=== PATIENT | female | born 1980 | race Caucasian/White ===

== ENCOUNTER 2024-11-05 15:36 | Outpatient (CLI) | payer BC, SELFPAY ==
[2024-11-05 15:58] LABS: Basophils Absolute Auto 0.1 K/mm3 (0.0-0.1); Basophils Percent Auto 0.6 % (0.2-1.2); Eosinophils Absolute Auto 0.3 K/mm3 (0-0.3); Eosinophils Percent Auto 4.3 % (0-4.4); Hematocrit 43.4 % (37.0-47.0); Hemoglobin 14.4 g/dL (12.0-15.0); Immature Granulocyte Absolute 0.02 K/mm3 (0.00-0.031); Immature Granulocyte Percent A 0.3 % (0-0.5); Lymphocytes Absolute Auto 2.02 K/mm3 (0.9-3.2); Lymphocytes Percent Auto 25.5 % (18.3-44.2); Mean Corpuscular HGB Conc 33.2 g/dl (32-36); Mean Corpuscular Volume 93.5 fl (80-100); Mean Platelet Volume 10.9 fl (7.4-10.4); Monocytes Absolute Auto 0.4 K/mm3 (0.1-0.6); Monocytes Percent Auto 4.9 % (2.6-8.5); Neutrophils Absolute Auto 5.1 K/mm3 (1.3-6.7); Neutrophils Percent Auto 64.4 % (45.5-73.1); Platelet Count Result 227 k/mm3 (150-375); Red Blood Count 4.64 M/mm3 (4.2-5.4); Red Cell Distribution Width 12.5 % (11.5-14.5); White Blood Count 7.9 K/mm3 (4.5-10.0)
--- OUTSIDE RECORDS SUMMARY | 2024-11-05 16:44 | XMS_ITS | Continuity of Care Document ---
Author Organization [facility] Address [address] [place] [address] Phone Care Team Providers Care Research Nutritionist Name Role Phone Mann Knott PT Unavailable Unavailable Allergies, Adverse Reactions, Alerts Substance Reaction Status Criticality No Known Allergies Active No Inform ation Medications Medication Instructions Dosage Effective Dates (start - stop) Status Comments hydrocodone 5 mg-acetaminophen 325 mg tablet take 1 tablet by oral route every 6 hours as needed for pain s/p surgery M19.071 - Active Ecotrin 325 mg tablet,enteric coated take 1 po BID with food for 30 days PO. - Active hydroxyzine HCl 50 mg tablet take 1 tablet by mouth every 6 hours PRN for agitation, nausea and vomiting. - Active Ecotrin 325 mg tablet,enteric coated take 1 po BID with food for 30 days PO - Active hydroxyzine HCl 50 mg tablet take 1 tablet by mouth every 6 hours PRN for agitation, nausea and vomiting - Active prednisolone acetate 1 % eye drops,suspension take 1 drop once into both eyes as needed - Active Procedures Procedure Date Postop followup visit Therapeutic activities (one on one) Neuromuscular re-edu Physical Tx exercise Vasopneumatic device therapy PT EVAL LOW COMPLEX 20 MIN Therapeutic activities (one on one) Neuromuscular re-edu Physical Tx exercise Vasopneumatic device therapy Postop followup visit Afo ankle gauntlet Postop followup visit Pneuma/vac walk boot pre ots Postop followup visit PA Arthscpy Ankle Debrid Extensive Sep-2 PA Muscle-skin flap, leg PA-Followup repair of ankleligament Arthscpy ankle debrid extensive 023 Arthroscopy, ankle, excise defect Muscle-skin flap, leg Followup repair of ankle ligament Surgery Prepay Office/outpatient visit,new, low 2022 Measure blood oxygen level, single Sep-0 Office/outpatient visit,est, mod 2022 Office/outpatient visit,new, mod 2022 X-ray exam of ankle, complete 3 Advance Directives Directive Yes / No Effective Date File Name No Information Encounters Encounter Description Practice Location Reason(s) For Visit Diagnoses Date Provider Providers Copied on Encounter [facility], [facility] [address] [place], [place], [facility] [place], [place] tel:[phone] No Information 4 Nikos Darnell. [address] [facility] [address], [place], [place], [id number] , [place]. [phone] [facility], [facility], [address], [place] tel:[phone] [place] Encounter for other orthopedic aftercare 3 Bib Shultz. [address], [place], [place], [id number] , [place]. tel:[phone] Referring Provider: Duy [address], [place], [address] . tel:[phone] [facility], [facility], [address], [place] tel:[phone] ON [place] Pain in right ankle and joints of right footGeneraliz ed edemaMuscle weakness (generalized) Sprain of other ligament of right ankle, subsequent encounter 3 Nikos Pinedachary. [address], [place], [place], [id number] , [place]. tel:[phone] Referring Provider: Carrington Camacho, [address], [place], [address] . tel:[phone] [facility], [facility] [place], [facility] [place], [place] tel:[phone] ON [facility] [place] Pain in right ankle and joints of right footGeneraliz ed edemaMuscle weakness (generalized) Sprain of other ligament of right ankle, subsequent encounter 3 Nikos Darnell. [address], [place], [place], [id number] , [place]. tel:[phone] Referring Provider: Duy [address], [place], [address] . tel:[phone] [facility] [place] [address] [place], [place], [facility] [place], [place] tel:[phone] [place] Sprain of other ligament of right ankle, subsequent encounterSpra in of other ligament of right ankle, subsequent encounterEnco unter for other orthopedic aftercare 3 Bib Shultz. [address], [place], [place], [id number] , [place]. tel:[phone] Referring Provider: Duy [address], [place], [address] . tel:[phone] [facility] [place] [address] [place], [place], [facility] [place], [place] tel:[phone] [place] No Information 3 Bib Shultz. [address], [place], [place], [id number] , [place]. tel:[phone] Referring Provider: Carrington Camacho, Duy [address] [facility] [address], [place], [address] . tel:[phone] [facility], [facility] [place], [facility] [place], [place] tel:[phone] [place] Encounter for other orthopedic aftercare 3 Bib Shultz. [address], [place], [place], [id number] , [place]. tel:[phone] Referring Provider: Carrington Camacho, Duy [address] [facility] [address], [place], [address] . tel:[phone] [facility], [facility] [place], [facility] [place], [place] tel:[phone] [place] No Information 3 Bib Shultz. [address] [facility] [address], [place], [place], [id number] , [place]. tel:[phone] Referring Provider: Carrington Camacho, Duy [address] [facility] [address], [place], [address] . tel:[phone] [facility], [facility] [place], [facility] [place], [place] tel:[phone] [place] Encounter for other orthopedic aftercare 3 Bib Shultz. [address] [facility] [address], [place], [place], [address] , [place]. tel:[phone] Referring Provider: Car[place] Camacho, Duy [address] [facility] [address], [place], [address] . tel:[phone] [facility], [facility] [place], [facility] [place], tel:[phone] [facility] No Information 3 Abraham Saab. [address] , [address], [place], [place], [id number] , [place]. tel:[phone] Referring Provider: Carrington Camacho, Duy [address], [place], [address] . tel:[phone] [facility], [facility] [place], [facility] [place], tel:[phone] [facility] No Information Mar-2 3 Bib Shultz. [address], [place], [place], [id number] , [place]. tel:[phone] Referring Provider: Carrington Camacho, Duy [address], [place], [address] . tel:[phone] [place] [address] [address] [place], [place], [facility] [place], tel:[phone] [facility] No Information Mar-2 3 Bib Shultz. [address], [address], [place], [place], [id number] , [place]. tel:[phone] Referring Provider: Carrington Camacho, Duy [address], [place], [address] . tel:[phone] Office/outpa tient visit,[facility], [facility] [place], [facility] [place], [place] tel:[phone] [facility] Preoperative examinationSp rain of right ankle, unspecified ligament, initial encounterPreo p cardiovascula r examObesity, morbid, BMI 40.0-49.9No contraindicat ion to anticoagulati on therapySeason al allergies Sep-0 3 Ken Light. [address], [address], [place], [place], [id number] , [place]. tel:[phone] Referring Provider: Carrington Camacho, Duy [address], [place], [address] . tel:[phone] Office/outpa tient visit,[facility], [facility], [facility] [place], [facility] [place], [place] tel:[phone] [place] Sprain of other ligament of right ankle, subs encntrOther specified joint disorders, right ankle and footOther instability, right ankle 3 Bib Shultz. [address], [place], [place], [id number] , [place]. tel:[phone] Referring Provider: Duy [address], [place], [address] . tel:[phone] Office/outpa tient visit,[facility], [address], [place], [address], [place] tel:[phone] [place] Other instability, right ankleOther specified joint disorders, right ankle and footSprain of other ligament of right ankle, initial encounter 3 Bib Shultz. [address], [place], [place], [id number] , [place]. tel:[phone] Referring Provider: Car[place] Camacho, Duy [address], [place], [address] . tel:[phone] Family History Family Member Type Diagnosis Age At Onset No Information Payers Payer name Insurance type Covered constitution party ID Jenny flynn(jose Aguilera [facility] [id number] Social History Type Description Quantity Date Captured Comments Sex Female Smoking Status No Information Chief Complaint And Reason For Visit No Information Reason For Referral Reason For Referral No Information Plan Of Treatment Date Type Action Status Future Order: Radiology Order An kle MRI joint, w/o contrast, Right (99929), Body Site: Ankle/Foot, Sent on: Sent History Of Present Illness Encounter Date Complaint History Of Prese nt Illness Preoperative medical risk stratification The patient, Chhaya Currie, is a 43-year-old female who presents for preoperative medical risk stratification at the request of Dr.Jeffrey Bib HARDIN, prior to right ankle arthroscopy. This patient presents with a 1 year history of pain involving the right ankle. She denies any specific injury but has had a prior history of some ankle sprains. She now reports constant gdzd-yc-aojeuknw pain and aching. She has been in a ankle brace for the past month. She reports undergoing more recent MRI imaging within the past month. Patient now presents for right ankle surgery recommended by her surgeon. This patient denies any chronic health conditions requiring pharmacologic treatment other than allergies primarily affecting her eyes requiring occasional prednisolone eye drops. This patient denies any adverse events associated with prior anesthetic. Functional Status Date Functional Assessmen t No Information Instructions Date Instruction Additional Infor mation No Information Assessments Type Assessment Date No Information Patient Care Teams Name Effective Dates (start - stop) Status Members No Information
--- OUTSIDE RECORDS SUMMARY | 2024-11-05 16:44 | XMS_ITS | Clinical Summary ---
Author Organization [facility] Address [address] [place] [address] Care Team Providers Care Unit Aide Name Role Phone Unavailable Primary Care Provider Unavailabl e Social History Tobacco Use Types Packs/Day Years Used Date Smoking Tobacco: Never Assessed Comments Unknown Sex and Gender Information Value Date Recorded Sex Assigned at Not on file Legal Sex Female 4:31 PM CDT Gender Identity Not on file Sexual Orientation Not on file Plan of Treatment Health Maintenance Due Date Last Done Comments Cervical Cancer Screening Pa p Smear (Age 30 to 64) Every 3 Years 1979 Colorectal Cancer Screening Colonoscopy (10 Years) 1979 Annual Physical 1982 Hepatitis C 1997 DTaP, Tdap and Td Vaccines ( 1 - Tdap) 1998 Hepatitis B Vaccines (1 of 3 - 19+ 3-dose series) 1998 Cervical Cancer Screening Pa p with HPV Testing (Age 30 to 64) Every 5 Years 2009 Cervical Cancer Screening with HPV 2009 Mammogram Screening 2019 COVID-19 Vaccine (2023-2 5 season) 2024 HPV Vaccines Aged Out No longer eligi ble based on patient's age to complete this topic Meningococcal B Vaccine Aged Out No l onger eligible based on patient's age to complete this topic Meningococcal Vaccine Aged Out No tim andrew eligible based on patient's age to complete this topic Pneumococcal Vaccine: Pediat rics (0 to 5 Years) and At-Risk Patients (6 to 49 Years) Aged Out No longer eligible b ased on patient's age to complete this topic RSV Immunizations Under 20 Months Aged Out No longer eligible based on patient's age to complete this topic
== END 2024-11-05 15:37 | disposition home or self-care (01) ==
LOC: ANHLAB 15:40
PROVIDERS: Visit Provider Nurse Practitioner Obstetrics & Gynecology
DX: N93.9 Abnormal uterine and vaginal bleeding, unspecified (principal)
CPT/HCPCS: 36415; 84146; 84443; 85025

== ENCOUNTER 2025-01-03 09:39 | Outpatient (CLI) | payer BC, SELFPAY ==
--- NOTE | ~2025-01-03 | US_ITS ---
EXAMINATION: US pelvic complete w TV INDICATION: Abnormal uterine bleeding Comparison:No prior studies for comparison. TECHNIQUE: Multiple transabdominal and endovaginal sonographic images of the pelvis performed. FINDINGS: The uterus measures 9.4 x 4.6 x 4.9 cm. There are nabothian cysts. The endometrial complex measures 7 mm. The right ovary measures 3.8 x 3 x 2.3 cm and the left ovary measures 3.2 x 2.8 x 1.8 cm. There are small follicles in each ovary. Normal doppler signal in both ovaries. There is trace free fluid in the pelvis and cervix. There are no abnormal masses seen on either side . IMPRESSION: 1. Unremarkable pelvic ultrasound. Reviewed, dictated and finalized at location B.
--- OUTSIDE RECORDS SUMMARY | 2025-01-03 09:44 | XMS_ITS | Continuity of Care Document ---
Author Organization [facility] Address [address] [place] [address] Phone Care Team Providers Care Quality Analyst Name Role Phone Mann Knott PT Unavailable Unavailable Allergies, Adverse Reactions, Alerts Substance Reaction Status Criticality No Known Allergies Active No Inform ation Medications Medication Instructions Dosage Effective Dates (start - stop) Status Comments hydrocodone 5 mg-acetaminophen 325 mg tablet take 1 tablet by oral route every 6 hours as needed for pain s/p surgery M19.071 - Active hydroxyzine HCl 50 mg tablet take 1 tablet by mouth every 6 hours PRN for agitation, nausea and vomiting. - Active Ecotrin 325 mg tablet,enteric coated take 1 po BID with food for 30 days PO. - Active hydroxyzine HCl 50 mg tablet take 1 tablet by mouth every 6 hours PRN for agitation, nausea and vomiting - Active Ecotrin 325 mg tablet,enteric coated take 1 po BID with food for 30 days PO - Active prednisolone acetate 1 % eye [...] Date Provider Providers Copied on Encounter [facility], [facility] [address] [place], [place], [facility], [place] tel:[phone] No Information 4 Nikos Darnell. [address] [facility] [address], [place], [place], [id number] , [place]. [phone] [facility], [facility] [place], [address], [place] tel:[phone] [place] Encounter for other orthopedic aftercare 3 Bib Shultz. [address], [place], [place], [id number] , [place]. tel:[phone] Referring Provider: Duy [address], [place], [address] . tel:[phone] [facility] [place], [facility] [place], [address], [place] tel:[phone] ON Therapy [place] Pain in right ankle and joints of right footGeneraliz ed edemaMuscle weakness (generalized) Sprain of other ligament of right ankle, subsequent encounter 3 Nikos Pinedachary. [address], [place], [place], [id number] , [place]. tel:[phone] Referring Provider: Car[place] Camacho, [address], [place], [address] . tel:[phone] [facility] [place], [facility] [place], [facility], [place] tel:[phone] ON Therapy [place] Pain in right ankle and joints of right footGeneraliz ed edemaMuscle weakness (generalized) Sprain of other ligament of right ankle, subsequent encounter 3 Nikos Darnell. [address], [place], [place], [id number] , [place]. tel:[phone] Referring Provider: Duy [address], [place], [address] . tel:[phone] [facility] [place] [address] [address] [place], [place], [facility], [place] tel:[phone] [place] Sprain of other ligament of right ankle, subsequent encounterSpra in of other ligament of right ankle, subsequent encounterEnco unter for other orthopedic aftercare 3 Bib Shultz. [address], [place], [place], [id number] , [place]. tel:[phone] Referring Provider: Duy [address], [place], [address] . tel:[phone] [facility] [place] [address] [address] [place], [place], [facility], [place] tel:[phone] [place] No Information 3 Bib Shultz. [address], [place], [place], [id number] , [place]. tel:[phone] Referring Provider: Carrington Camacho, Duy [address] Dr [facility] [address], [place], [address] . tel:[phone] [facility], [facility] [place], [facility], [place] tel:[phone] [place] Encounter for other orthopedic aftercare 3 Bib Shultz. [address], [place], [place], [id number] , [place]. tel:[phone] Referring Provider: Carrington Camacho, Duy [address] [facility] [address], [place], [address] . tel:[phone] [facility], [facility] [place], [facility], [place] tel:[phone] [place] No Information 3 Bib Shultz. [address] [facility] [address], [place], [place], [address] , [place]. tel:[phone] Referring Provider: Carrington Camacho, Duy [address] [facility] [address], [place], [address] . tel:[phone] [facility], [facility] [place], [facility], [place] tel:[phone] ON [place] Encounter for other orthopedic aftercare 3 Bib Shultz. [address] [facility] [address], [place], [place], [id number] , [place]. tel:[phone] Referring Provider: Carrington Camacho, Duy [address] [facility] [address], [place], [address] . tel:[phone] [facility], [facility] [place], [facility], tel:[phone] [facility] No Information 3 Abraham Saab. [address] , [address], [place], [place], [id number] , [place]. tel:[phone] Referring Provider: Carrington Camacho, Duy [address], [place], [address] . tel:[phone] [facility], [facility] [place], [facility], tel:[phone] [facility] No Information Mar-2 3 Bib Shultz. [address], [place], [place], [id number] , [place]. tel:[phone] Referring Provider: Carrington Camacho, [address]uy [address], [place], [address] . tel:[phone] [place] [address] [address] [place], [place], [facility], tel:[phone] [facility] No Information Mar-2 3 Bib Shultz. [address], [place], [place], [address] , [place]. tel:[phone] Referring Provider: Car[place] Camacho, [address]uy [address], [place], [address] . tel:[phone] Office/outpa tient visit,[facility], [facility] [place], [facility], [place] tel:[phone] [facility] Preoperative examinationSp rain of right ankle, unspecified ligament, initial encounterPreo p cardiovascula r examObesity, morbid, BMI 40.0-49.9No contraindicat ion to anticoagulati on therapySeason al allergies Sep-0 3 Ken Light. [address], [address], [place], [place], [id number] , [place]. tel: [phone] Referring Provider: Car[place] Camacho, [address]uy [address], [place], [address] . tel:[phone] Office/outpa tient visit,[facility], [facility], [facility] [place], [facility], [place] tel:[phone] ON [place] Sprain of other ligament of right ankle, subs encntrOther specified joint disorders, right ankle and footOther instability, right ankle 3 Bib Shultz. [address], [place], [place], [address] , [place]. tel:[phone] Referring Provider: [address], [place], [address] . tel:[phone] Office/outpa tient visit,[facility], [address], [place], [address], [place] tel:[phone] [place] Other instability, right ankleOther specified joint disorders, right ankle and footSprain of other ligament of right ankle, initial encounter 3 Bib Shultz. [address], [place], [place], [address] , [place]. tel:[phone] Referring Provider: Car[place] Camacho, [address]uy [address], [place], [address] . tel:[phone] Family History Family Member Type Diagnosis Age At Onset No Information Payers Payer name Insurance type Covered green party ID Jenny flynn(jose Aguilera [facility] [id number] Social History Type Description Quantity Date Captured Comments Sex Female Smoking Status No Information Chief Complaint And Reason For Visit No Information Reason For Referral Reason For Referral No Information Plan Of Treatment Date Type Action Status Future Order: Radiology Order An kle MRI joint, w/o contrast, Right ([id number]), Body Site: Ankle/Foot, Sent on: Sent History [...] some ankle sprains. She now reports constant umyx-po-tfbxabgd pain and aching. She has been in [...]
== END 2025-01-03 09:40 | disposition home or self-care (01) ==
PROVIDERS: Visit Provider Nurse Practitioner Obstetrics & Gynecology
DX: N93.9 Abnormal uterine and vaginal bleeding, unspecified (principal)
CPT/HCPCS: 76830; 76856